=== PATIENT | male | born 1965 | race African-American/Black ===

== ENCOUNTER 2018-08-31 18:41 | Emergency (ER) | payer BC ==
[~2018-08-31] VITALS: Ht 172.7 cm; Wt 103.4 kg
[2018-08-31 20:06] LABS: BASO % 1 % (0-3); EOS # 0.1 x10^3/uL (0.0-0.7); EOS % 4 % (0-3); HEMATOCRIT 42.1 % (39.0-53.0); HEMOGLOBIN 14.2 g/dL (13.0-17.5); LYMPH # 1.3 x10^3/uL (1.0-4.8); LYMPH % 33 % (24-48); MEAN CORPUSCULAR HEMOGLOBIN 29 pg (25-35); MEAN CORPUSCULAR HGB CONC 34 g/dL (31-37); MEAN CORPUSCULAR VOLUME 87 fL (79-100); MONO # 0.3 x10^3/uL (0.0-1.1); MONO % 8 % (0-9); NEUT # 2.1 x10^3uL (1.8-7.7); NEUT % 55 % (31-73); PLATELET COUNT 302 x10^3/uL (140-400); RED BLOOD COUNT 4.84 x10^6/uL (4.30-5.70); RED CELL DISTRIBUTION WIDTH 13.7 % (11.5-14.5); WHITE BLOOD COUNT 3.9 x10^3/uL (4.0-11.0)
--- NOTE | 2018-08-31 20:39 | RAD ---
CT Head W/O Contrast: History: ELEVATED HTN, NO PRIORS headache Comparison: none Axial images were obtained without contrast. The webb and white matter appears normal and symmetrical for the patients age. There is no mass effect, extraaxial fluid collections or hydrocephalus. There is no gross bleed. There is no focal loss of webb-white matter distinction to suggest acute ischemia, i.e. stroke. Impression: No acute findings. RS Compliance Statement: One or more of the following individualized dose reduction techniques were utilized for this examination: 1. Automated exposure control 2. Adjustment of the mA and/or kV according to patient size 3. Use of iterative reconstruction technique Electronically signed by: Elías Moreau III, MD (08/31/2018 8:36 PM) [facility]
--- NOTE | 2018-08-31 20:52 | PHYS DOC ---
Past Medical History Past Medical History: No Pertinent History Past Surgical History: Other Additional Past Surgical Histo: KNEE Alcohol Use: Occasionally Drug Use: None Adult General Chief Complaint Chief Complaint: HYPERTENSION HPI HPI Patient is a 53 year old otherwise healthy male who presents with hypertension. Patient notes he was at [email or web address] shopping when he checked his blood pressure on the machine there and it read 185/100. The patient notes he then called a nurse hotline who instructed him to come get evaluated in the emergency department. The patient's only complaint is that he has a light headache that started on Friday. The patient denies any change in vision, focal weakness or neurologic signs. The patient notes that he does check his blood pressure intermittently at [facility] and that it usually runs in the 150s systolic. The patient notes that he has never discussed hypertension with his primary care doctor who he last saw 1 year ago. Review of Systems Review of Systems Constitutional: Denies fever or chills [] Eyes: Denies change in visual acuity, redness, or eye pain [] HENT: Denies nasal congestion or sore throat [] Respiratory: Denies cough or shortness of breath [] Cardiovascular: Denies chest pain or palpitations [] GI: Denies abdominal pain, nausea, vomiting, bloody stools or diarrhea [] : Denies dysuria or hematuria [] Musculoskeletal: Denies back pain or joint pain [] Integument: Denies rash or skin lesions [] Neurologic: Notes headache. Denies focal weakness or sensory changes [] Complete systems were reviewed and found to be within normal limits, except as documented in this note. Allergies Allergies Allergies Uncoded Allergies Type Severity Reaction Last Updated Verified TEA Allergy Mild RASH 08/31/18 Physical Exam Physical Exam Constitutional: Well developed, well nourished, no acute distress, non-toxic appearance. [] HENT: Normocephalic, atraumatic, oropharynx moist, no oral exudates, nose normal. [] Eyes: PERRL, EOMI, conjunctiva normal, no discharge. [] Neck: Normal range of motion, no tenderness, supple, no stridor. [] Cardiovascular:Heart rate regular rhythm, no murmur [] Lungs & Thorax: Bilateral breath sounds clear to auscultation [] Abdomen: Bowel sounds normal, soft, no tenderness, no masses, no pulsatile masses. [] Skin: Warm, dry, no erythema, no rash. [] Back: No tenderness, no CVA tenderness. [] Extremities: No tenderness, ROM intact, no edema. [] Neurologic: Alert and oriented X 3, normal motor function, normal sensory function, no focal deficits noted. [] Psychologic: Affect normal, judgement normal, mood normal. [] Current Patient Data Vital Signs Vital Signs Date Time Temp Pulse Resp B/P (MAP) Pulse Ox O2 Delivery O2 Flow Rate FiO2 08/31/18 20:19 22 08/31/18 19:54 78 96 08/31/18 18:43 97.8 183/98 (126) Room Air 97.8 Lab Values Laboratory Tests Test 08/31/18 19:55 08/31/18 20:36 White Blood Count 3.9 x10^3/uL (4.0-11.0) L Red Blood Count 4.84 x10^6/uL (4.30-5.70) Hemoglobin 14.2 g/dL (13.0-17.5) Hematocrit 42.1 % (39.0-53.0) Mean Corpuscular Volume 87 fL (79-100) Mean Corpuscular Hemoglobin 29 pg (25-35) Mean Corpuscular Hemoglobin Concent 34 g/dL (31-37) Red Cell Distribution Width 13.7 % (11.5-14.5) Platelet Count 302 x10^3/uL (140-400) Neutrophils (%) (Auto) 55 % (31-73) Lymphocytes (%) (Auto) 33 % (24-48) Monocytes (%) (Auto) 8 % (0-9) Eosinophils (%) (Auto) 4 % (0-3) H Basophils (%) (Auto) 1 % (0-3) Neutrophils # (Auto) 2.1 x10^3uL (1.8-7.7) Lymphocytes # (Auto) 1.3 x10^3/uL (1.0-4.8) Monocytes # (Auto) 0.3 x10^3/uL (0.0-1.1) Eosinophils # (Auto) 0.1 x10^3/uL (0.0-0.7) Basophils # (Auto) 0.0 x10^3/uL (0.0-0.2) Sodium Level 140 mmol/L (136-145) Potassium Level 3.5 mmol/L (3.5-5.1) Chloride Level 103 mmol/L (98-107) Carbon Dioxide Level 30 mmol/L (21-32) Anion Gap 7 (6-14) Blood Urea Nitrogen 10 mg/dL (8-26) Creatinine 1.1 mg/dL (0.7-1.3) Estimated GFR (Cockcroft-Gault) 84.1 BUN/Creatinine Ratio 9 (6-20) Glucose Level 99 mg/dL (70-99) Calcium Level 9.6 mg/dL (8.5-10.1) Magnesium Level 2.1 mg/dL (1.8-2.4) Total Bilirubin 0.3 mg/dL (0.2-1.0) Aspartate Amino Transferase (AST) 23 U/L (15-37) Alanine Aminotransferase (ALT) 40 U/L (16-63) Alkaline Phosphatase 59 U/L (46-116) Creatine Kinase 375 U/L (39-308) H Creatine Kinase MB (Mass) 1.8 ng/mL (0.0-3.6) Creatine Kinase MB Relative Index 0.5 % (0-4) Troponin I Quantitative < 0.017 ng/mL (0.000-0.055) PT-Mmw-E-Type Natriuretic Peptide 18 pg/mL (0-124) Total Protein 7.8 g/dL (6.4-8.2) Albumin 3.8 g/dL (3.4-5.0) Albumin/Globulin Ratio 1.0 (1.0-1.7) Lipase 169 U/L (73-393) Laboratory Tests 08/31/18 19:55 Laboratory Tests 08/31/18 20:36 EKG EKG Rate 76, UT 184, QTC 423. Normal sinus rhythm, left axis, no STEMI. [] Interpretation Time: 1856 Radiology/Procedures Radiology/Procedures PROCEDURE: CT HEAD WO CONTRAST CT Head W/O Contrast: History: ELEVATED HTN, NO PRIORS headache Comparison: none Axial images were obtained without contrast. The webb and white matter appears normal and symmetrical for the patients age. There is no mass effect, extraaxial fluid collections or hydrocephalus. There is no gross bleed. There is no focal loss of webb-white matter distinction to suggest acute ischemia, i.e. stroke. Impression: No acute findings. PQRS Compliance Statement: One or more of the following individualized dose reduction techniques were utilized for this examination: 1. Automated exposure control 2. Adjustment of the mA and/or kV according to patient size 3. Use of iterative reconstruction technique Electronically signed by: Elías Moreau III, MD (08/31/2018 8:36 PM) [facility] Course & Med Decision Making Course & Med Decision Making 53-year-old male presenting with hypertension and headache. Systolic blood pressure initially 185/101 in the emergency department and remained stable without any significant fluctuation during the ED time. CT head ordered due to headache with hypertension and does not show any acute intracranial abnormality. Labs collected including CBC, CMP, magnesium, troponin, BNP and reviewed and are unremarkable. Patient reports resolution of his headache. Patient will be given prescription for by mouth clonidine to take for symptomatic hypertension. Patient given explicit instruction as to take this medication and when not to.Patient stable for discharge with outpatient follow- up with PCP. Discussed findings and plan with patient and family, who acknowledge understanding and agreement. [] Dragon Disclaimer Dragon Disclaimer This electronic medical record was generated, in whole or in part, using a voice recognition dictation system. Departure Departure Impression: Primary Impression: Hypertension Disposition: HOME, SELF-CARE Condition: IMPROVED Referrals: NON,STAFF (PCP) ZACK GREEN MD Patient Instructions: Hypertension Scripts Clonidine Hcl (CLONIDINE HCL) 0.1 Mg Tablet 0.1 MG PO BID PRN for ELEVATED BP, SEE COMMENTS, #14 TAB Take for systolic blood pressure > 200 and/or diastolic blood pressure >110. Prov: JOSEPH CANTOR DO 08/31/18 Problem Qualifiers Primary Impression: Hypertension Hypertension type: unspecified Qualified Codes: I10 - Essential (primary) hypertension JOSEPH CANTOR DO Aug 31, 2018 20:52
[2018-08-31 21:01] LABS: CALCIUM 9.6 mg/dL (8.5-10.1); CREATININE 1.1 mg/dL (0.7-1.3); GFR 84.1; POTASSIUM 3.5 mmol/L (3.5-5.1)
[2018-08-31 21:07] LABS: ALBUMIN 3.8 g/dL (3.4-5.0); MAGNESIUM 2.1 mg/dL (1.8-2.4); TOTAL BILIRUBIN 0.3 mg/dL (0.2-1.0); TOTAL PROTEIN 7.8 g/dL (6.4-8.2)
[2018-08-31] MEDS ORDERED: CLON0.1T PO (21:50)
[2018-08-31 23:49] VITALS: BP 183/94
--- NOTE | 2018-09-01 02:46 | EKG ---
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
== END 2018-08-31 21:50 | disposition home or self-care (01) ==
LOC: ER 18:41
DX: I10 Essential (primary) hypertension (principal); R51 Headache; Z91.018 Allergy to other foods
CPT/HCPCS: 36415; 70450; 80053; 82553; 83690; 83735; 83880; 84484; 85025; 93005; 99284